=== PATIENT | female | born 1980 | race Caucasian/White ===

== ENCOUNTER 2017-02-05 20:56 | Emergency (ER) | payer MEDICAID ==
[~2017-02-05] VITALS: Ht 160 cm; Wt 106.6 kg
--- NOTE | 2017-02-05 20:56 | NUR ---
BIBA TO ER BED 2
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
--- NOTE | 2017-02-05 21:02 | NUR ---
Patient being evaluated by physician at bedside.
--- NOTE | 2017-02-05 21:03 | NUR ---
PT TO L&D VIA WHEELCHAIR TO R/O LABOR
[2017-02-05 21:04] VITALS: BP 131/80
--- NOTE | 2017-02-05 23:05 | NUR ---
PT. BACK FROM L AND D, NO CONTRACTION, [facility] 120
[2017-02-05 23:17] VITALS: BP 131/80
--- NOTE | 2017-02-05 23:17 | NUR ---
Patient discharged with v/s stable. Written and verbal after care instructions given and explained. Patient verbalized understanding. Ambulatory with steady gait. All questions addressed prior to discharge. Advised to follow up with PMD.
== END 2017-02-05 23:17 | disposition home or self-care (01) ==
LOC: MED 20:56 → MLD 21:10 → UNDOADMOB 21:10 → MED 23:17
DX: O26.893 Other specified pregnancy related conditions, third trimester (principal); R10.819 Abdominal tenderness, unspecified site
CPT/HCPCS: 81002; 99283